=== PATIENT | male | born 1975 | race Caucasian/White ===

== ENCOUNTER 2024-06-05 12:26 | Inpatient (IN) | payer OTHER ==
[~2024-06-05] VITALS: Ht 185.4 cm; Wt 125.5 kg
[2024-06-05 14:01] LABS: BASOPHILS ABSOLUTE AUTO 0.07 K/mm3 (0.00-0.23); BASOPHILS PERCENT AUTO 0 % (0-2); EOSINOPHILS ABSOLUTE AUTO 0.05 K/mm3 (0.00-0.68); EOSINOPHILS PERCENT AUTO 0 % (0-6); Hematocrit 36.2 % (37.0-53.0); Hemoglobin 11.9 g/dL (13.5-17.5); IMMATURE GRAN ABSOLUTE AUTO 0.14 K/mm3 (0.00-0.10); IMMATURE GRAN PERCENT AUTO 1 % (0-1); LYMPHOCYTES ABSOLUTE AUTO 1.79 K/mm3 (0.84-5.20); LYMPHOCYTES PERCENT AUTO 10 % (21-46); MONOCYTES ABSOLUTE AUTO 1.92 K/mm3 (0.16-1.47); MONOCYTES PERCENT AUTO 10 % (4-13); Mean Corpuscular HGB 28.2 pg (26.0-34.0); Mean Corpuscular HGB Conc 32.9 g/dL (31.5-36.5); Mean Corpuscular Volume 86 fL (80-100); Mean Platelet Volume 10.2 fL (9.1-12.4); NEUTROPHILS ABSOLUTE AUTO 14.88 K/mm3 (1.96-9.15); NEUTROPHILS PERCENT AUTO 79 % (41-73); Platelet Count 385 K/mm3 (150-400); RDW Standard Deviation 44.3 fL (35.1-46.3); Red Blood Cell Count 4.22 M/mm3 (4.30-5.90); White Blood Cell Count 18.85 K/mm3 (4.00-11.30)
[2024-06-05 14:12] LABS: Albumin, Blood 2.5 g/dL (3.4-5.0); Albumin/Globulin Ratio 0.4 (0.8-1.8); Bilirubin, Total 0.8 mg/dL (0.1-1.0); Bun/Creatinine Ratio 15.9 (12.0-20.0); Calcium, Blood 8.8 mg/dL (8.5-10.1); Creatinine, Blood 0.69 mg/dL (0.60-1.20); Globulin, Blood 6.1 g/dL (2.2-4.0); Potassium, Blood 3.1 mmol/L (3.5-5.5); Total Protein, Blood 8.6 g/dL (6.4-8.2)
[2024-06-05 14:30] LABS: Source, Urine Clean Catch
[2024-06-05 14:41] LABS: Appearance, Urine Clear (Clear); Blood, Urine 4+ (Neg); Color, Urine Amber (P-Yellow); Glucose Qualitative, Urine Neg (Neg); Ketones, Urine Neg (Neg); Leukocyte Esterase, Urine 1+ (Neg); Nitrite, Urine Neg (Neg); Protein, Urine 2+ (Neg); Specific Gravity, Urine 1.025 (1.003-1.022); Urobilinogen, Urine 4+ (Normal)
[2024-06-05 14:47] LABS: Bilirubin, Urine 1+ (Neg)
[2024-06-05 14:50] LABS: Bacteria Many /hpf; Mucus Light (0-Heavy); Squamous Epithelial Cells Few /hpf (Few)
[2024-06-05] MEDS ORDERED: Piperacillin/Tazobactam Sod 4.5 GM in NS 100 ML IV ONE (18:05)
[2024-06-05] MEDS ORDERED: Vancomycin HCL 1,500 MG in NS 250 ML IV ONE (18:05)
[2024-06-05] MEDS ORDERED: Clindamycin 600mg in D5W 50 ML IV ONE (18:05)
[2024-06-05 18:38] LABS: International Normalized Ratio 1.04; Prothrombin Time Results 11.1 Sec (9.7-11.5)
[2024-06-05] MEDS ORDERED: Ketorolac Tromethamine 30mg Vial IV ONE (20:00)
[2024-06-05] MEDS ORDERED: Ondansetron HCl 2 MG / ML 2ML Vial IV PRN (20:00)
[2024-06-05] MEDS ORDERED: FLU VACC TS2024-25(6MOS UP)/PF 45 MCG/0.5 ML SYRINGE IM SCH (20:00)
[2024-06-05] MEDS ORDERED: Acetaminophen 500 MG Tab PO ONE (20:05)
[2024-06-05] MEDS ORDERED: CeFAZolin Sodium 2,000 MG in NS 100 ML IV SCH (20:30)
[2024-06-05 20:59] LABS: U Amphetamine Screen Not Detected; U Barbituate Screen Not Detected; U Benzodiazapine Screen Not Detected; U Buprenorphine Screen Not Detected; U Cannabinoids Screen Not Detected; U Cocaine Screen Not Detected; U Methadone Screen DETECTED; U Methamphetamine Screen DETECTED; U Opiates Screen Not Detected; U Oxycodone Screen Not Detected; U Phencyclidine Screen Not Detected
[2024-06-05] MEDS ORDERED: Lactobacil 2-S.Thermo-Bifido 1 1 Cap PO SCH (21:00)
[2024-06-05] MEDS ORDERED: NS 1,000 ML IV ONE (21:00)
[2024-06-05] MEDS ORDERED: Potassium Chloride 20 MEQ TabCR PO ONE (21:00)
[2024-06-05] MEDS ORDERED: Potassium Chloride 20 MEQ TabCR PO SCH (22:00)
[2024-06-05] MEDS ORDERED: Nicotine 21 MG PATCH TOP SCH (22:30)
[2024-06-05 22:36] VITALS: BP 115/68
[2024-06-05] MEDS ORDERED: NS 1,000 ML BAG IR SCH (22:40)
[2024-06-05] MEDS ORDERED: BUMETANIDE2 M6 PO (22:46)
[2024-06-05] MEDS ORDERED: ROXICODONE15 MG PO (22:47)
[2024-06-05] MEDS ORDERED: Vancomycin HCL 1,000 MG in NS 250 ML IV ONE (23:45)
[2024-06-06] MEDS ORDERED: NS 250 ML IV PRN (00:40)
[2024-06-06 03:49] VITALS: BP 144/85
[2024-06-06] MEDS ORDERED: OxyCODONE HCL 5 MG TAB PO PRN ×2 (03:55→10:20)
[2024-06-06] MEDS ORDERED: Acetaminophen 325 MG TABLET PO PRN (03:55)
--- NOTE | 2024-06-06 04:31 | NUR ---
New ER admit @ 2205, A&O, afebrile since assuming care, VSS, had a snack then slept t/o the night w/LE elevated on pillows, sleeping at this time, call light in reach, will cont to monitor until report given to oncoming nurse.
[2024-06-06 06:12] LABS: BASOPHILS ABSOLUTE AUTO 0.07 K/mm3 (0.00-0.23); BASOPHILS PERCENT AUTO 0 % (0-2); EOSINOPHILS ABSOLUTE AUTO 0.15 K/mm3 (0.00-0.68); EOSINOPHILS PERCENT AUTO 1 % (0-6); Hematocrit 31.2 % (37.0-53.0); Hemoglobin 10.3 g/dL (13.5-17.5); IMMATURE GRAN ABSOLUTE AUTO 0.17 K/mm3 (0.00-0.10); IMMATURE GRAN PERCENT AUTO 1 % (0-1); LYMPHOCYTES ABSOLUTE AUTO 1.44 K/mm3 (0.84-5.20); LYMPHOCYTES PERCENT AUTO 8 % (21-46); MONOCYTES ABSOLUTE AUTO 1.82 K/mm3 (0.16-1.47); MONOCYTES PERCENT AUTO 10 % (4-13); Mean Corpuscular HGB 28.5 pg (26.0-34.0); Mean Corpuscular Volume 86 fL (80-100); Mean Platelet Volume 10.2 fL (9.1-12.4); NEUTROPHILS ABSOLUTE AUTO 14.19 K/mm3 (1.96-9.15); NEUTROPHILS PERCENT AUTO 80 % (41-73); Platelet Count 320 K/mm3 (150-400); RDW Coefficient Variation 14.1 % (11.7-14.2); RDW Standard Deviation 44.7 fL (35.1-46.3); Red Blood Cell Count 3.61 M/mm3 (4.30-5.90); White Blood Cell Count 17.84 K/mm3 (4.00-11.30)
[2024-06-06 06:20] LABS: Anion Gap 7 mmol/L (3-11); Blood Urea Nitrogen 14 mg/dL (8-24); Bun/Creatinine Ratio 20.1 (12.0-20.0); CO2, Blood 29 mmol/L (21-32); Calcium, Blood 8.7 mg/dL (8.5-10.1); Chloride, Blood 104 mmol/L (98-108); Cholesterol 85 mg/dL (50-200); Glomerular Filtration Rate 114 (60-); Glucose, Blood 156 mg/dL (70-99); HDL Cholesterol 17 mg/dL (>39); LDL/HDL RATIO 3.1; Low Density Lipoprotein Chol 52 mg/dL (0-110); Magnesium, Blood 2.4 mg/dL (1.6-2.4); Potassium, Blood 3.4 mmol/L (3.5-5.5); Sodium, Blood 137 mmol/L (136-145); Triglycerides 79 mg/dL (30-160); Very Low Density Lipoprot Chol 15 mg/dL (6-32)
[2024-06-06] MEDS ORDERED: Polyethylene Glycol 3350 17 gm PO PRN (07:35)
[2024-06-06] MEDS ORDERED: Vancomycin HCL 1,250 MG in NS 250 ML IV SCH (08:00)
[2024-06-06 08:05] VITALS: BP 123/76
[2024-06-06] MEDS ORDERED: Nicotine 21 MG PATCH TOP SCH (09:00)
[2024-06-06] MEDS ORDERED: Enoxaparin 40 MG/0.4 ML SYR SC SCH ×2 (09:00)
[2024-06-06 15:32] VITALS: BP 140/75
[2024-06-06] MEDS ORDERED: HYDROmorphone HCl/Pf 1MG SYR IV PRN (17:45)
[2024-06-06 19:28] VITALS: BP 120/69
[2024-06-06] MEDS ORDERED: Docusate Sodium/Senna 1 Tab PO SCH (21:00)
[2024-06-06 23:29] LABS: Vancomycin, Trough 19.6 ug/mL (5.0-10.0)
[2024-06-07 03:21] VITALS: BP 120/89
[2024-06-07 05:09] LABS: Hematocrit 30.3 % (37.0-53.0); Hemoglobin 9.7 g/dL (13.5-17.5); Mean Corpuscular HGB 27.9 pg (26.0-34.0); Mean Corpuscular Volume 87 fL (80-100); Mean Platelet Volume 10.2 fL (9.1-12.4); Platelet Count 351 K/mm3 (150-400); RDW Coefficient Variation 14.4 % (11.7-14.2); RDW Standard Deviation 45.9 fL (35.1-46.3); Red Blood Cell Count 3.48 M/mm3 (4.30-5.90); White Blood Cell Count 13.95 K/mm3 (4.00-11.30)
[2024-06-07 05:26] LABS: Albumin, Blood 1.9 g/dL (3.4-5.0); Anion Gap 8 mmol/L (3-11); Blood Urea Nitrogen 9 mg/dL (8-24); Bun/Creatinine Ratio 14.2 (12.0-20.0); CO2, Blood 27 mmol/L (21-32); Calcium, Blood 8.6 mg/dL (8.5-10.1); Chloride, Blood 108 mmol/L (98-108); Creatinine, Blood 0.63 mg/dL (0.60-1.20); Glomerular Filtration Rate 117 (60-); Glucose, Blood 152 mg/dL (70-99); Magnesium, Blood 2.3 mg/dL (1.6-2.4); Phosphorus, Blood 3.5 mg/dL (2.5-4.9); Potassium, Blood 3.6 mmol/L (3.5-5.5); Sodium, Blood 139 mmol/L (136-145)
--- NOTE | 2024-06-07 06:21 | NUR ---
SHIFT SUMMARY PT ALERT AND ORIENTED TIMES 4. PT ABLE TO MAKE NEEDS KNOWN. MULTIPLE REQUESTS FOR PAIN MEDICATION. PT HADSLEEP AT TIMES. BED IN LOW POSITION, CALL LIGHT WITHIN REACH, RAILS TIMES 2.
[2024-06-07 07:11] VITALS: BP 124/64
[2024-06-07] MEDS ORDERED: Furosemide 10 MG/ML 4ML Vial IV SCH (12:00)
[2024-06-07] MEDS ORDERED: Elastic Bandage/Support 1 EA MISC TOP ONE (12:25)
[2024-06-07 16:11] VITALS: BP 125/81
--- NOTE | 2024-06-07 17:52 | NUR ---
SHIFT SUMMARY: PATIENT IS A&OX4/INDEPENDENT CALLS APPROPRIATELY, HE TOOK A SHOWER TODAY, AND UNNA BOOTS APPLIED BILATERALLY TO HIS LEGS. PATIENT IS C/O PAIN IN HIS BACK AND LEGS AND IS GETTING PAIN MEDICATION NEEDED; WHEN HE CAN. HE WAS STARTED ON LASIX TODAY AND WHEN THIS RN ATTEMPTED TO GIVE HIS 1800 DOSE HE REFUSED DUE TO BEING IN PAIN AND WOULD LIKE TO REST BECAUSE THE LASIX MAKES HIM GET UP A LOT TO VOID. PATIENT REQUEST THAT IT BE GIVEN LATER. PATIENT IN BED, WAS TEARFUL DUE TO PAIN, CALL LIGHT WITHIN REACH, NO SIGNS OR SYMPTOMS OF DISTRESS, PLAN OF CARE ONGOING.
[2024-06-07 19:41] VITALS: BP 131/85
[2024-06-08 04:34] VITALS: BP 120/80
[2024-06-08 07:00] LABS: Bun/Creatinine Ratio 14.9 (12.0-20.0); Calcium, Blood 9.1 mg/dL (8.5-10.1); Creatinine, Blood 0.61 mg/dL (0.60-1.20); Potassium, Blood 4.2 mmol/L (3.5-5.5)
[2024-06-08 07:15] VITALS: BP 145/93
[2024-06-08 15:51] LABS: Vancomycin, Trough 21.2 ug/mL (5.0-10.0)
[2024-06-08 16:27] VITALS: BP 137/94
[2024-06-08] MEDS ORDERED: Elastic Bandage/Support 1 EA MISC TOP ONE (17:20)
--- NOTE | 2024-06-08 17:30 | NUR ---
SHIFT SUMMARY: NO EVENTS OR CHANGES WITH THE PATIENT THROUGHOUT THE SHIFT. HE CONTINUES TO GET IV ANTIOBIOTICS, PAIN MEDICATIONS NEEDED, HIS UNNA BOOTS WERE REMOVED, PATIENT TOOK A SHOWER AND NEW UNNA BOOTS APPLIED. SLIGHT IMPROVEMENT IN LOWER EXTREMITIES. PLAN OF CARE ONGOING.
[2024-06-08 20:09] VITALS: BP 125/92
[2024-06-09] MEDS ORDERED: Vancomycin HCL 1,000 MG in NS 250 ML IV SCH
--- NOTE | 2024-06-09 04:09 | NUR ---
SHIFT SUMMARY: PT IS A 49 YO FULL CODE ADMITTED FOR CELLULITIS TO LOWER LEGS. LEFT LEG CELLULITIS PROGRESSES TO THE LEFT THIGH. PT HAS LOWER LEGS WRAPPED AND SAYS THEY ARE PAINFUL BUT TOLERABLE. PT IS A&OX4 AND IND IN ROOM AND CALLS APPROPRIATELY. PT IS A NICE MAN WHO ENJOYED A VISIT FROM HIS DURING THE SHIFT AND NEEDED SOME PAIN RELIEF (SEE EMAR). PT HAS BEEN IND TO THE BATHROOM AND USING URINAL. PT IS CURRENTLY WEARING A NICOTINE PATCH. CALL LIGHT IN REACH.
[2024-06-09 05:25] VITALS: BP 113/69
[2024-06-09 06:21] LABS: Bun/Creatinine Ratio 18.5 (12.0-20.0); Calcium, Blood 8.7 mg/dL (8.5-10.1); Creatinine, Blood 0.65 mg/dL (0.60-1.20); Potassium, Blood 3.8 mmol/L (3.5-5.5)
[2024-06-09 08:09] VITALS: BP 113/87
[2024-06-09] MEDS ORDERED: NICO21TP TOP (12:24)
[2024-06-09] MEDS ORDERED: DOCUZEN 8.6-501 EACH PO (12:24)
[2024-06-09] MEDS ORDERED: MIRALAX17 GM PO (12:25)
[2024-06-09] MEDS ORDERED: 1/2 NS 250ml250 ML (12:25)
[2024-06-09] MEDS ORDERED: VISBIOME 112.51 EACH PO (12:26)
[2024-06-09] MEDS ORDERED: POTCHL20ER PO (12:26)
[2024-06-09] MEDS ORDERED: CEPH500 PO (12:26)
--- NOTE | 2024-06-09 15:23 | NUR ---
DISCHARGE NOTE: PT AOX4 AND TRANSFERRED SELF INTO WHEELCHAIR. FATHER CAME TO GIVE HIM A RIDE HOME. DISCHARGE PLAN AND MED RECS GONE OVER WITH PT. MEDS SENT TO [facility]. TOLD TO FOLLOWUP WITH PCP AND WOUND CARE CLINIC.
== END 2024-06-09 15:04 | disposition home or self-care (01) | DRG 872 ==
LOC: ER 12:26 → MEDS 20:45
PROVIDERS: Emergency Medicine; Internal Medicine; Nurse Practitioner Acute Care; Physician Assistant; Student in an Organized Health Care Education/Training Program; ADMIT Student in an Organized Health Care Education/Training Program
DX: A41.9 Sepsis, unspecified organism (principal); L03.116 Cellulitis of left lower limb; F15.10 Other stimulant abuse, uncomplicated; E87.6 Hypokalemia; A46 Erysipelas; F17.210 Nicotine dependence, cigarettes, uncomplicated; F11.90 Opioid use, unspecified, uncomplicated; E88.09 Other disorders of plasma-protein metabolism, not elsewhere classified; D64.9 Anemia, unspecified; G89.29 Other chronic pain; E16.2 Hypoglycemia, unspecified; Z71.51 Drug abuse counseling and surveillance of drug abuser; M54.9 Dorsalgia, unspecified; Z71.6 Tobacco abuse counseling
CPT/HCPCS: 36415; 71046; 73701; 74177; 80048; 80053; 80061; 80069; 80202; 81001; 83036; 83605; 83735; 83880; 84100; 84145; 85025; 85027; 85610; 85730; 87040; 87086; 93005; 93010; 93306; 93970; 96365-59; 97161; 99285-25; A9270; J0690; J1171; J1650; J1885; J1940; J2543; J3370; J7030; J7050; Q9967

== ENCOUNTER 2024-06-15 03:56 | Day surgery (SDC) | payer OTHER ==
[~2024-06-15 03:56] MED LIST: 1/2 NS 250ml250 ML; BUMETANIDE2 M6 PO; CEPH500 PO; DOCUZEN 8.6-501 EACH PO; MIRALAX17 GM PO; NICO21TP TOP; POTCHL20ER PO; ROXICODONE15 MG PO; VISBIOME 112.51 EACH PO
[2024-06-15] MEDS ORDERED: Lidocaine HCl 4% Cream 5 GM ONE (13:44)
== END 2024-06-15 23:00 | disposition home or self-care (01) ==
LOC: WOUND 03:56
DX: L03.116 Cellulitis of left lower limb (principal); L03.115 Cellulitis of right lower limb; F17.210 Nicotine dependence, cigarettes, uncomplicated; I87.313 Chronic venous hypertension (idiopathic) with ulcer of bilateral lower extremity; I89.0 Lymphedema, not elsewhere classified
CPT/HCPCS: A9270

== ENCOUNTER 2024-11-06 03:12 | Day surgery (SDC) | payer OTHER ==
[2024-11-06] MEDS ORDERED: Lidocaine HCl 4% Topical Soln 50 ML BTL ONE (12:49)
== END 2024-11-06 23:33 | disposition home or self-care (01) ==
LOC: WOUND 03:12
DX: L97.812 Non-pressure chronic ulcer of other part of right lower leg with fat layer exposed (principal); L03.115 Cellulitis of right lower limb; F17.210 Nicotine dependence, cigarettes, uncomplicated; I87.2 Venous insufficiency (chronic) (peripheral); I73.9 Peripheral vascular disease, unspecified
CPT/HCPCS: G0463

== ENCOUNTER 2024-11-20 01:23 | Day surgery (SDC) | payer OTHER ==
[2024-11-20] MEDS ORDERED: Lidocaine HCl 4% Topical Soln 50 ML BTL ONE (14:29)
== END 2024-11-20 23:00 | disposition home or self-care (01) ==
LOC: WOUND 01:23
DX: L97.812 Non-pressure chronic ulcer of other part of right lower leg with fat layer exposed (principal); L03.115 Cellulitis of right lower limb; F17.210 Nicotine dependence, cigarettes, uncomplicated; I87.2 Venous insufficiency (chronic) (peripheral); I73.9 Peripheral vascular disease, unspecified
CPT/HCPCS: G0463

== ENCOUNTER 2024-12-10 09:15 | Day surgery (SDC) | payer OTHER ==
[2024-12-10] MEDS ORDERED: Sodium Hypochlorite 0.125% 20ML BTL ONE (09:57)
== END 2024-12-10 23:39 | disposition home or self-care (01) ==
LOC: WOUND 09:15
DX: L97.812 Non-pressure chronic ulcer of other part of right lower leg with fat layer exposed (principal); L03.115 Cellulitis of right lower limb; F17.210 Nicotine dependence, cigarettes, uncomplicated; I87.2 Venous insufficiency (chronic) (peripheral); I73.9 Peripheral vascular disease, unspecified
CPT/HCPCS: A9270; G0463

== ENCOUNTER 2025-01-10 01:32 | Day surgery (SDC) | payer OTHER ==
[2025-01-10] MEDS ORDERED: Lidocaine HCl 4% Cream 5 GM ONE (13:33)
== END 2025-01-10 23:00 | disposition home or self-care (01) ==
LOC: WOUND 01:32
DX: L97.812 Non-pressure chronic ulcer of other part of right lower leg with fat layer exposed (principal); L03.115 Cellulitis of right lower limb; F17.210 Nicotine dependence, cigarettes, uncomplicated; I87.2 Venous insufficiency (chronic) (peripheral); I73.9 Peripheral vascular disease, unspecified
CPT/HCPCS: A9270; G0463

== ENCOUNTER → 2025-02-05 | Day surgery (SDC) | payer OTHER | END | disposition home or self-care (01) | LOC: WOUND | DX: L97.822 Non-pressure chronic ulcer of other part of left lower leg with fat layer exposed (principal); L97.212 Non-pressure chronic ulcer of right calf with fat layer exposed; L03.115 Cellulitis of right lower limb; F17.210 Nicotine dependence, cigarettes, uncomplicated; I87.2 Venous insufficiency (chronic) (peripheral); I73.9 Peripheral vascular disease, unspecified; I89.0 Lymphedema, not elsewhere classified | CPT/HCPCS: G0463 ==

== ENCOUNTER 2025-02-26 01:09 | Day surgery (SDC) | payer OTHER | END 2025-02-26 23:00 | disposition home or self-care (01) | LOC: WOUND 01:09 | DX: I89.0 Lymphedema, not elsewhere classified (principal); L97.812 Non-pressure chronic ulcer of other part of right lower leg with fat layer exposed; I87.2 Venous insufficiency (chronic) (peripheral); I73.9 Peripheral vascular disease, unspecified; F17.210 Nicotine dependence, cigarettes, uncomplicated | CPT/HCPCS: G0463 ==

== ENCOUNTER 2025-03-08 03:34 | Day surgery (SDC) | payer OTHER | END 2025-03-08 23:00 | disposition home or self-care (01) | LOC: WOUND 03:34 | DX: L97.812 Non-pressure chronic ulcer of other part of right lower leg with fat layer exposed (principal); L03.115 Cellulitis of right lower limb; L97.822 Non-pressure chronic ulcer of other part of left lower leg with fat layer exposed; F17.210 Nicotine dependence, cigarettes, uncomplicated; I87.2 Venous insufficiency (chronic) (peripheral); I73.9 Peripheral vascular disease, unspecified | CPT/HCPCS: G0463 ==

== ENCOUNTER 2025-03-15 08:00 | Day surgery (SDC) | payer OTHER | END 2025-03-15 23:00 | disposition home or self-care (01) | LOC: WOUND 08:00 | DX: L97.812 Non-pressure chronic ulcer of other part of right lower leg with fat layer exposed (principal); I89.0 Lymphedema, not elsewhere classified; I87.2 Venous insufficiency (chronic) (peripheral); I73.9 Peripheral vascular disease, unspecified; F17.210 Nicotine dependence, cigarettes, uncomplicated | CPT/HCPCS: G0463 ==

== ENCOUNTER 2025-03-29 00:23 | Day surgery (SDC) | payer OTHER | END 2025-03-29 23:00 | disposition home or self-care (01) | LOC: WOUND 00:23 | DX: I89.0 Lymphedema, not elsewhere classified (principal); L97.812 Non-pressure chronic ulcer of other part of right lower leg with fat layer exposed; I87.2 Venous insufficiency (chronic) (peripheral); L03.115 Cellulitis of right lower limb; I73.9 Peripheral vascular disease, unspecified; F17.210 Nicotine dependence, cigarettes, uncomplicated | CPT/HCPCS: G0463 ==

== ENCOUNTER 2025-04-05 10:41 | Day surgery (SDC) | payer OTHER | END 2025-04-05 23:00 | disposition home or self-care (01) | LOC: WOUND 10:41 | DX: I89.0 Lymphedema, not elsewhere classified (principal); S81.801D Unspecified open wound, right lower leg, subsequent encounter; S81.802D Unspecified open wound, left lower leg, subsequent encounter; L97.819 Non-pressure chronic ulcer of other part of right lower leg with unspecified severity; I87.2 Venous insufficiency (chronic) (peripheral); I73.9 Peripheral vascular disease, unspecified | CPT/HCPCS: G0463 ==

== ENCOUNTER 2025-05-17 02:24 | Day surgery (SDC) | payer OTHER | END 2025-05-17 23:00 | disposition home or self-care (01) | LOC: WOUND 02:24 | DX: I89.0 Lymphedema, not elsewhere classified (principal); I87.2 Venous insufficiency (chronic) (peripheral); I73.9 Peripheral vascular disease, unspecified; F17.210 Nicotine dependence, cigarettes, uncomplicated | CPT/HCPCS: G0463 ==

== ENCOUNTER 2025-05-23 00:37 | Day surgery (SDC) | payer OTHER ==
[2025-05-23] MEDS ORDERED: Lidocaine HCl 4% Cream 5 GM ONE (14:29)
== END 2025-05-23 23:00 | disposition home or self-care (01) ==
LOC: WOUND 00:37
DX: I89.0 Lymphedema, not elsewhere classified (principal); L97.822 Non-pressure chronic ulcer of other part of left lower leg with fat layer exposed; L97.812 Non-pressure chronic ulcer of other part of right lower leg with fat layer exposed; L97.512 Non-pressure chronic ulcer of other part of right foot with fat layer exposed; I73.9 Peripheral vascular disease, unspecified
CPT/HCPCS: A9270; G0463

== ENCOUNTER 2025-05-29 01:13 | Day surgery (SDC) | payer OTHER | END 2025-05-29 23:00 | disposition home or self-care (01) | LOC: WOUND 01:13 | DX: L97.812 Non-pressure chronic ulcer of other part of right lower leg with fat layer exposed (principal); L97.822 Non-pressure chronic ulcer of other part of left lower leg with fat layer exposed; L97.512 Non-pressure chronic ulcer of other part of right foot with fat layer exposed; I87.2 Venous insufficiency (chronic) (peripheral); I73.9 Peripheral vascular disease, unspecified; F17.210 Nicotine dependence, cigarettes, uncomplicated; I89.0 Lymphedema, not elsewhere classified | CPT/HCPCS: G0463 ==

== ENCOUNTER 2025-06-05 00:26 | Day surgery (SDC) | payer OTHER | END 2025-06-05 23:20 | disposition home or self-care (01) | LOC: WOUND 00:26 | DX: L97.812 Non-pressure chronic ulcer of other part of right lower leg with fat layer exposed (principal); L97.822 Non-pressure chronic ulcer of other part of left lower leg with fat layer exposed; L97.512 Non-pressure chronic ulcer of other part of right foot with fat layer exposed; I87.2 Venous insufficiency (chronic) (peripheral); I73.9 Peripheral vascular disease, unspecified; F17.210 Nicotine dependence, cigarettes, uncomplicated | CPT/HCPCS: G0463 ==

== ENCOUNTER 2025-06-12 00:23 | Day surgery (SDC) | payer OTHER | END 2025-06-12 23:00 | disposition home or self-care (01) | LOC: WOUND 00:23 | DX: I89.0 Lymphedema, not elsewhere classified (principal); L97.822 Non-pressure chronic ulcer of other part of left lower leg with fat layer exposed; L97.812 Non-pressure chronic ulcer of other part of right lower leg with fat layer exposed; I73.9 Peripheral vascular disease, unspecified; I87.2 Venous insufficiency (chronic) (peripheral); F17.210 Nicotine dependence, cigarettes, uncomplicated | CPT/HCPCS: G0463 ==

== ENCOUNTER → 2025-07-01 | Day surgery (SDC) | payer OTHER ==
[~2025-07-01] MED LIST changes: +Lidocaine HCl 4% Cream 5 GM ONE
== END ==
LOC: WOUND 15:20
DX: I89.0 Lymphedema, not elsewhere classified (principal); I87.2 Venous insufficiency (chronic) (peripheral); I73.9 Peripheral vascular disease, unspecified; F17.210 Nicotine dependence, cigarettes, uncomplicated
CPT/HCPCS: A9270; G0463